=== PATIENT | female | born 1985 | race Caucasian/White ===

== ENCOUNTER 2020-02-26 18:37 | Emergency (ER) | payer MEDICAID, SELFPAY ==
[2020-02-26 18:37] VITALS: BP 142/99; PULSE 75; RESP 16; TEMP 36.4; O2SAT 100; BMI 21.4
--- NOTE | 2020-02-26 18:52 | CT_ITS ---
STUDY: CT ABDOMEN AND PELVIS WITH CONTRAST REASON FOR EXAM: Female, 35 years old. FELL OFF TREADMILL, HIT LUQ ON HANDLE BAR. PAIN SINCE. RADIATION DOSAGE (If Supplied By Facility): CTDIvol = ( 12.465 ) mGy, DLP = ( 440.10 ) mGycm TECHNIQUE: Transaxial images were obtained from the dome of the diaphragm to the symphysis pubis without oral contrast. IV 100mL Isovue-300 was administered. Sagittal and coronal images were reconstructed. Individualized dose optimization techniques were used for this CT. COMPARISON: None. FINDINGS: The visualized lung bases are unremarkable. The visualized portions of the heart are within normal limits. Normal liver. Normal gallbladder and extrahepatic biliary system. Normal spleen. Normal pancreas. Normal bilateral adrenal glands. Normal right kidney. Normal left kidney. Normal visualized stomach. Normal small intestine. Colonic diverticulosis. The appendix is visualized and appears normal. Normal abdominal aorta. Normal inferior vena cava. Normal retroperitoneum. Normal urinary bladder. Uterus is normal. Tubal ligation clip on the left. The right tubal ligation clip appears to be displaced in the left lower quadrant of the abdomen. Bilateral breast implants. Normal osseous structures. CT/Abdomen/Pelvis W IV Cont ONLY IMPRESSION: No acute disease. Displaced tubal ligation clip as above. Electronically Signed: Gilberto Christine MD at 21:20 EST , Service support ,
--- NOTE | 2020-02-26 18:52 | ED.VIS.FALL ---
History of Present Illness Chief Complaint: Fall Informant: Patient Occurred: Yesterday Mechanism/Context: Same level fall Location: LUQ, left lower ribcage Quality of Pain: Aching Current Severity: Severe Maximum Severity: Severe Worsened by: breathing, palpation, movement Relieved by: breathing easy and remaining still Narrative: Patient was running on a treadmill last night with her dog, she accidentally fell off hitting the handlebar into her left upper quadrant and has been having significant pain ever since. No other injury. - Past Medical History (1) Personal history of malignant neoplasm of breast Status: Chronic Past Medical History - Allergies and Home Meds Allergies/Adverse Reactions: Allergies amoxicillin [From Augmentin] Adverse Reaction (Verified 02/26/20 18:40) Diarrhea clavulanic acid [From Augmentin] Adverse Reaction (Verified 02/26/20 18:40) Diarrhea Primary Care Physician: NOT,DEFINED [NON-STAFF] - Surgical History: - - Bilateral mastectomy and reconstruction, BTL Lives: Spouse/ Significant Other Drugs: None Review of Systems General: Denies: Chills, Fever, Sweats Eyes: Denies: Visual changes - bilaterally, Diplopia ENT: Denies: Rhinorrhea, Sore throat Cardiovascular: Reports: Chest pain. Denies: Palpitations Respiratory: Denies: Dyspnea, Cough, Dyspnea on exertion Gastrointestinal: Reports: Abdominal pain. Denies: Nausea, Vomiting, Diarrhea, Melena, Hematochezia Genitourinary: Denies: Dysuria, Hematuria, Frequency Musculoskeletal: Denies: Back pain, Extremity Pain Skin: Reports: Abrasions. Denies: Rash, Wounds Neurological: Denies: Headache, Weakness, Numbness Physical Exam Vital Signs/Narrative: Vital Signs Temp Pulse Resp BP Pulse Ox 02/26/20 18:37 97.5 F L 75 16 142/99 H 100 Inital Vital Signs reviewed: Yes General: Well nourished, Well developed, - - NAD Head: Normocephalic, Atraumatic Eyes: Perrl, EOMI ENT: TM's clear, No hemotympanum or drainage, No trauma Neck: Nontender, Full ROM Cardiovascular: Regular rate, Regular rhythm, No murmurs Respiratory: No distress, CTA bilaterally, Chest tenderness - very tender left lower anterior ribs and toward caudal sternum; no palpable step off, deformity, or crepitance Abdomen: Soft, Nondistended, Normal bowel sounds, Tender - very tender left subcostal LUQ; otherwise, NT; nearby abrasion where tip of handlebar struck, just laterally within LUQ, not overlying ribs. no laceration. no purpura or ecchymosis. Rectal: Deferred Back: Nontender. Negative for: Spinal Tenderness Extremeties: Atraumatic, FROM x 4. Skin: Normal color, Trauma - abrasion LUQ. see above. Neurological: Alert, Oriented x3, Cranial nerves II-XII grossly intact, Normal Strength, Normal Sensation, Normal Gait Psychological: Normal affect, Normal Mood Diagnostic/Tx/Re-eval Impressions Abdomen/Pelvis CT 02/26/20 18:52 IMPRESSION: No acute disease. Displaced tubal ligation clip as above. Electronically Signed: Gilberto Christine MD at 21:20 EST , Service support , 02/26/20 18:52 Abdomen/Pelvis W IV Cont ONLY [CT] Stat Laboratory Results 02/26/20 02/26/20 19:29 19:29 WBC 8.2 RBC 4.53 Hgb 14.8 Hct 43.5 MCV 96.0 MCH 32.7 H MCHC 34.0 RDW Std Deviation 46.1 H RDW Coeff of Priti 13.0 Plt Count 310 MPV 10.6 Immature Gran % (Auto) 0.100 Neut % (Auto) 59.7 Lymph % (Auto) 27.8 [place] % (Auto) 9.6 Eos % (Auto) 1.7 Baso % (Auto) 1.1 H Absolute Neuts (auto) 4.9 Absolute Lymphs (auto) 2.29 Nucleated RBC % 0 Sodium 143 Potassium 3.3 L Chloride 110 H Carbon Dioxide 27.0 Anion Gap 6 BUN 14 Creatinine 0.59 Estim Creat Clear Calc 112.74 Est GFR (MDRD) Af Amer 147 Est GFR (MDRD) Non-Af 122 BUN/Creatinine Ratio 23.7 H Glucose 79 Calcium 8.9 - Medical Decision Making Patient was treated with morphine and scan, given the possibility of rib fracture, or lack thereof with possible pulmonary contusion, spleen injury, and small bowel/colon injury in the differential diagnosis. CT scan with contrast was negative for all of the above likely. Patient was reassured, given a prescription for analgesics, instructions for at home outpatient care she is comfortable with this plan. ED Disposition - Plan for ED Patient: Disposition: Home or Assisted Living Diagnosis: Abdominal wall contusion, Contusion of left chest wall Instructions: ED Contusion, Rib Prescriptions: traMADol [Ultram] 50 mg PO Q4H PRN PRN 2 Days #12 tab PRN Reason: Pain Prescription Printed Referrals: Doctor,Your [STAFF PHYSICIAN] - 1 Week if not improving
[2020-02-26] MEDS: 0.9% Normal Saline 1,000 ML 1000 ML IV (19:27)
[2020-02-26] MEDS: Morphine 4 MG/ML Syringe IV (19:28)
[2020-02-26 20:24] LABS: Absolute Lymphocyte Count 2.29 X10^3/uL (0.83-4.51); Absolute Neutrophil Count 4.9 X10^3/uL (2.0-7.7); Basophil# 0.09 X10^3/uL; Basophil% 1.1 % (0-1); Eosinophil# 0.14 X10^3/uL; Eosinophils% 1.7 % (0-5); Hematocrit 43.5 % (37-47); Hemoglobin 14.8 g/dL (12.0-15.0); Lymphocyte # 2.29 X10^3/ul (4.0); Lymphocyte % 27.8 % (19-41); Mean Corpuscular Hgb 32.7 pg (27.0-32.0); Mean Platelet Vol. 10.6 fl (6.2-12.0); Monocyte# 0.79 X10^3/uL; Monocyte% 9.6 % (0-10); NRBC Flagged by Analyzer 0 % (0-5); Neutrophil # 4.91 X10^3/uL (2.7-7.7); Neutrophil % 59.7 % (47-70); Platelet Count 310 K/mm3 (150-450); RBC Distribution Width SD 46.1 fl (35.1-43.9); Red Blood Count 4.53 M/mm3 (4.2-5.4); White Blood Count 8.2 K/mm3 (4.4-11.0)
[2020-02-26 20:34] LABS: Anion Gap 6 (5-15); BUN 14 mg/dL (7-18); BUN/Creat Ratio 23.7 RATIO (10-20); Calcium,Total 8.9 mg/dL (8.5-10.1); Chloride 110 mmol/L (98-107); Creatinine, Serum 0.59 mg/dL (0.55-1.02); EST Glomerular Filtration Rate 122 mL/min (>60); Est Glom Filt Rate - Afr Amer 147 mL/min (>60); Estimated Creatinine Clearance 112.74 ml/min; Glucose 79 mg/dL (74-106); Potassium 3.3 mmol/L (3.5-5.1); Sodium Level 143 mmol/L (136-145)
[2020-02-26 22:43] VITALS: BP 133/87; PULSE 81; RESP 16; O2SAT 97
== END 2020-02-26 22:45 | disposition home or self-care (01) ==
PROVIDERS: Emergency Provider Emergency Medicine; PCP Family Medicine
DX: S20.212A Contusion of left front wall of thorax, initial encounter (principal); S30.1XXA Contusion of abdominal wall, initial encounter; W20.8XXA Other cause of strike by thrown, projected or falling object, initial encounter; Y93.A1 Activity, exercise machines primarily for cardiorespiratory conditioning; Y92.89 Other specified places as the place of occurrence of the external cause; Y99.9 Unspecified external cause status; Z85.3 Personal history of malignant neoplasm of breast; Z88.0 Allergy status to penicillin; Z88.1 Allergy status to other antibiotic agents
CPT/HCPCS: 74177; 80048; 85025; 96361; 96374; 99283; J7030; Q9967; A4216